=== PATIENT | female | born 1970 | race Caucasian/White ===

== ENCOUNTER 2018-11-25 10:05 | Day surgery (SDC) | payer OTHER ==
[2018-11-25] MEDS ORDERED: FENTAnyl 50 MCG/ML VIAL (12:19)
[2018-11-25] MEDS ORDERED: MIDAZOLAM 1 MG/ML 2 ML INJ ×3 (12:19)
== END 2018-11-25 17:33 | disposition home or self-care (01) ==
LOC: GIL 10:05
DX: Z12.11 Encounter for screening for malignant neoplasm of colon (principal); K64.8 Other hemorrhoids
CPT/HCPCS: 45378